=== PATIENT | male | born 1955 | race African-American/Black ===

== ENCOUNTER → 2016-05-28 | Outpatient (CLI) | payer OTHER ==
[~2016-05-28] MED LIST: ADULT LOW DOSE81 MG PO; ALPRAZOLAM 0.50.5 MG; CELEBREX 200 M200 MG PO; CHANTIX1 MG; CLONIDINE PO; CYCLOBENZAPRINE PO; FLEXERIL PO; MEDROLDOSEPACK PO; MIRAPEX PO; MIRAPEX1 MG; MS CONTIN 100100 MG PO; NEURONTIN600 MG PO; NORVASC 5 MG TAB5 MG PO; NORVASC2.5 MG; OMEPRAZOLE PO; PERCOCET 10-321 EACH PO; PREDNISONE 5 MG5 M1 PO; VICODIN 5-5001 EACH PO; VITAMIN D 5050000 I1 PO; WELLBUTRIN; ZOFRAN ODT4 MG PO
== END ==
LOC: CAT 16:22
DX: R60.9 Edema, unspecified (principal)

== ENCOUNTER → 2016-06-09 | Outpatient (CLI) | payer OTHER | LOC: MRI 09:27 | DX: R51 Headache (principal); T14.90 Injury, unspecified; V49.9XXA Car occupant (driver) (passenger) injured in unspecified traffic accident, initial encounter ==

== ENCOUNTER → 2016-06-14 | Outpatient (CLI) | payer OTHER | LOC: RAD 11:35 | DX: M16.11 Unilateral primary osteoarthritis, right hip (principal); M25.551 Pain in right hip ==

== ENCOUNTER → 2016-11-16 | Outpatient (CLI) | payer OTHER | LOC: RAD 11:58 | DX: M47.896 Other spondylosis, lumbar region (principal); M54.41 Lumbago with sciatica, right side; M16.11 Unilateral primary osteoarthritis, right hip ==

== ENCOUNTER → 2017-02-22 | Outpatient (CLI) | payer OTHER ==
[~2017-02-22] VITALS: Ht 188 cm; Wt 108.0 kg
--- NOTE | ~2017-02-22 | HPC ---
[facility] [address] [place] [address] PAIN MANAGEMENT CONSULTATION Name: ADRYAN ANDRES ANTHONY Room #: REG RYAN AlvaLakesha#: [id number] Admission: 02/22/17 Attend Phys: Saul Helton DO Discharge: Date of : 57 Report #: [id number] THIS REPORT FOR: //name// CC: Saul Dorado DATE OF SERVICE: 02/22/2017 CHIEF COMPLAINT: Neck pain, left upper extremity pain and paresthesias. HISTORY OF PRESENT ILLNESS: As you know, the patient is a 61-year-old male who began experiencing neck pain, left upper extremity pain and paresthesias that presented spontaneously in 12/2016. He denies injury or trauma that may have led to symptom development. He was evaluated by his primary care physician, Dr. Marcos Lowery, and ultimately determined he may be suffering from cervical radiculopathy and sent for MRI imaging. MRI did show some changes that were concerning for cervical radicular symptoms. The patient was subsequently referred to our clinic to trial a cervical epidural injection. The patient indicates today pain is continuous and steady, describes pain as shooting, stabbing, numbness and tingling. Places current pain score today over 10 daily, average at 9-10/10, worst pain has been 10/10. The patient states pain is exacerbated when he sits and uses his upper extremities, improves with pain medications. He has been referred to our service to trial a cervical epidural injection. PAST MEDICAL HISTORY: 1. Hypertension. 2. Hepatitis. 3. Degenerative joint disease. 4. Osteoarthritis. 5. Chronic lumbar radicular symptoms. PAST SURGICAL HISTORY: Lumbar spine surgery 11/15/2016. SOCIAL HISTORY: The patient smokes 1 pack tobacco per day, has done so for 45 years. Denies IV or illicit drug use. Admits to alcohol beverage once a day. He is retired on disability. He has been on disability for nearly 15 years. He is not in litigation in regards to his pain. He is unaccompanied today. REVIEW OF SYSTEMS: Positive for wearing corrective eyewear, neck pain, left upper extremity pain and paresthesias, low back pain and post-surgical pain, hepatitis, hypertension, degenerative joint disease and osteoarthritis. All other review of systems negative per 12-point review of systems other than those listed in history of present illness. [address] [address] PAIN MANAGEMENT CONSULTATION Name: ADRYAN ANDRES ANTHONY Room #: REG RYAN Nation#: [id number] Admission: 02/22/17 Attend Phys: Saul Helton DO Discharge: Date of : 57 Report #: [id number] Pain impact score 66/70 indicating near complete interference of daily activities secondary to pain. ALLERGIES: No known drug allergies. CURRENT MEDICATIONS: Amlodipine 2.5 mg once a day, Mirapex 1 mg per day, cyclobenzaprine 10 mg 3 times a day, vitamin D 50,000 units week, celecoxib 200 mg twice a day, prednisone 5 mg twice a day, Percocet 10/325 one tab every 4 hours p.r.n. for pain, gabapentin 600 mg 3 times a day. IMAGING: MRI cervical spine obtained on 02/07/2017 shows multilevel degenerative changes, mild central canal stenosis at C6-C7 without compelling CT evidence for associated cervical disk protrusion, bilateral foraminal stenosis noted. Multilevel facet arthropathy, mild to moderate in nature, most pronounced at L3-L4 level. PHYSICAL EXAMINATION: VITAL SIGNS: Blood pressure 133/72, pulse 77, respiratory rate 20, unlabored. The patient is 100% on room air, height 6 feet 2 inches tall, weight 238 pounds, BMI calculated at 30.5. GENERAL: Well-developed, well-nourished, well-hydrated 61-year-old male, appears his stated age, placing current pain score at 8/10. HEENT: Normocephalic, atraumatic. Pupils are equal, round, reactive to light. Extraocular muscles are intact. Sclerae nonicteric without injection. NEUROLOGIC: Cranial nerves 2-12 grossly intact. Speech is fluent. The patient deemed a poor historian. LUNGS: Clear, no wheeze, rhonchi or rales though prolonged expiratory phase. CARDIOVASCULAR: Regular. No appreciable gallop or rub. ABDOMEN: Soft, nontender, nondistended. EXTREMITIES: Show no clubbing, no cyanosis, no edema. MUSCULOSKELETAL: Upper extremity strength appears symmetrical 5/5, some giveaway strength noted with biceps flexion on the left when compared to the right. Intact to light touch from C5 through T1 dermatomes. Deep tendon reflexes are symmetrical at biceps, brachioradialis and triceps. Spurling's test is negative. Cervical provocation test causes some increase of pain with leftward rotation. ASSESSMENT: 1. Suspected cervical radiculopathy. 2. Mild cervical spinal stenosis. 3. Facet arthropathy of cervical spine. 4. Cervical spondylosis with radicular symptoms. 5. Chronic intractable pain. PLAN: 1. The patient has been referred to our clinic by his primary care physician, [address] [place] [address] PAIN MANAGEMENT CONSULTATION Name: ADRYAN ANDRES ANTHONY Room #: REG RYAN Nation#: [id number] Admission: 02/22/17 Attend Phys: Saul Helton DO Discharge: Date of : 57 Report #: [id number] Marcos Lowery, for evaluation for suspected cervical radiculopathy. We have reviewed the patient's cervical imaging and it shows some minor changes within the cervical area. His distribution of symptoms would correlate with cervical radicular symptoms, though I was unable to elicit any cervical radicular symptoms during today's evaluation. The patient has been sent specifically for a cervical epidural injection. We have advised the patient of the treatment options that are available including the requested cervical injection. These would include physical therapy, stretching exercises, core strengthening, medication changes with escalating doses of gabapentin and reducing his reliance on oxycodone as it is not an appropriate treatment for cervical radicular symptoms for long-term treatment options. We discussed the cervical epidural injection requested of our services and surgical options. After reviewing the risks and benefits of all proposed treatment options, the patient chose to undergo the requested cervical epidural injection. The patient was advised the risks and benefits of cervical epidural injections. These risks include but are not necessarily limited to bleeding, bruising, infection, worsening pain, no relief of pain, also risk of temporary or permanent muscle weakness, temporary or permanent nerve damage, possible paralysis and . The patient states understood and wished to proceed. 2. No medication changes were provided at today's visit, we will make suggestions for treatment options if necessary when adjusting medications for cervical radicular symptoms. These would likely and include changes in his gabapentin therapy. If these are necessary, we will suggest this to his primary care team and direct titration of the medication if needed. 3. We wish to thank Dr. Lowery for the opportunity to see this patient in consultation. We will keep you apprised of his response to treatment for suspected cervical radiculopathy. Again, we wish to thank you for the opportunity to see this patient in consultation. PROCEDURE NOTE: DESCRIPTION OF PROCEDURE: C7-T1 cervical epidural steroid injection under fluoroscopic guidance. This is the first procedure of the first series that the patient is undergoing. After obtaining written consent, the patient was taken back to the fluoroscopy suite and placed in a prone position with separate pillows under chest and forehead to decrease cervical lordosis. The skin overlying the cervical area was prepped and draped in an aseptic fashion. The C7-T1 vertebral interspace was identified by AP fluoroscopy. The skin and subcutaneous tissue overlying the target site of injection was anesthetized using 3 mL of 1% lidocaine. A 20-gauge 3-1/2 inch Tuohy needle was advanced under fluoroscopic guidance toward the epidural space using a midline approach. [place] [address] PAIN MANAGEMENT CONSULTATION Name: ADRYAN ANDRES ANTHONY Room #: REG Lisa Nation#: [id number] Admission: 02/22/17 Attend Phys: Saul Helton DO Discharge: Date of : 57 Report #: [id number] identified using a loss of resistance to air technique. After negative aspiration for heme or cerebrospinal fluid, a total of 1 mL of Omnipaque was injected. A cervical epidurogram was confirmed using AP and oblique fluoroscopy. After negative aspiration for heme or cerebrospinal fluid, 5 mL of a solution containing 2 mL, 40 mg per mL, 80 mg of total triamcinolone, 3 mL of lidocaine 1% was injected in increments. Contrast spread was noted from posterior epidural space. The needle was then retracted approximately residential and the needle track was flushed with 1 mL of 1% lidocaine. There were no apparent new sensory deficits in the upper extremities present following the procedure. A sterile bandage was placed over the injection site. The heart rate, pulse oximetry and blood pressure were continuously monitored after the procedure. There were no apparent complications. The patient tolerated the procedure well and was carefully escorted in the recovery room in stable condition. After meeting discharge criteria, the patient was discharged home. <ELECTRONICALLY SIGNED> By: Saul Helton DO 03/02/17 [id number] Saul Helton DO /nt
[2017-02-22 09:21] VITALS: BP 133/72
== END | disposition home or self-care (01) ==
LOC: PAIN 11-30 07:09
DX: M47.22 Other spondylosis with radiculopathy, cervical region (principal); G89.29 Other chronic pain; Z68.30 Body mass index [BMI] 30.0-30.9, adult; Z79.899 Other long term (current) drug therapy; I10 Essential (primary) hypertension; M19.90 Unspecified osteoarthritis, unspecified site; Z98.890 Other specified postprocedural states

== ENCOUNTER → 2018-05-09 | Outpatient (CLI) | payer OTHER | LOC: CAT 11:21 | DX: Z13.6 Encounter for screening for cardiovascular disorders (principal); E78.00 Pure hypercholesterolemia, unspecified ==

== ENCOUNTER → 2020-03-05 | Outpatient (CLI) | payer OTHER | LOC: BC 07:54 | PROVIDERS: ATTEND Internal Medicine | DX: N62 Hypertrophy of breast (principal) ==